=== PATIENT | male | born 1960 | race African-American/Black ===

== ENCOUNTER 2016-03-30 18:39 | Emergency (ER) | payer BC ==
[~2016-03-30] VITALS: Ht 175.3 cm; Wt 72.6 kg
[~2016-03-30 18:39] MED LIST: ACETAMINOPHEN-1 EAC1 ORAL
[2016-03-30 19:22] VITALS: BP 133/91
[2016-03-30 20:38] LABS: APPEARANCE,URINE CLEAR; KETONES,URINE NEGATIVE (NEGATIVE); LEUKOCYTE ESTERASE ,URINE NEGATIVE (NEGATIVE); NITRITE,URINE NEGATIVE (NEGATIVE); PH,URINE 6 (4.5-8.0); PROTEIN,URINE NEGATIVE (NEGATIVE); UROBILINOGEN,URINE 1 MG/DL (0.0-1.0)
[2016-03-30 20:56] LABS: WBC,URINE 0-2 /HPF (0 - 0)
[2016-03-30 21:20] LABS: ALANINE AMINOTRANSFERASE 10 U/L (3-41); ALBUMIN/GLOBULIN RATIO 0.6 (1.0-2.7); ANION GAP 9 (5-15); ASPARTATE AMINO TRANSFERASE 19 U/L (5-40); CALCIUM 8.6 mg/dL (8.6-10.2); CARBON DIOXIDE 29 mEQ/L (20-30); CHLORIDE 103 mEQ/L (98-107); GLOMERULAR FILTRATION RATE > 60 mL/min (>60); HEMOLYSIS 74; POTASSIUM 4.2 mEQ/L (3.4-4.9); SODIUM 141 mEQ/L (135-145); TOTAL PROTEIN 8.2 g/dL (6.6-8.7)
[2016-03-30] MEDS ORDERED: BENTYL10 MG ORAL (21:28)
[2016-03-30 21:31] LABS: LIPASE 17 U/L (< 60)
[2016-03-30 21:37] LABS: BASOPHILS % (AUTO) 1.8 % (0.0-2.0); EOSINOPHILS % (AUTO) 1.1 % (0.0-3.0); LYMPHOCYTES % (AUTO) 43.9 % (20.0-45.0); MEAN CORPUSCULAR HEMOGLOBIN 30.1 PG (27.0-31.0); MEAN CORPUSCULAR VOLUME 94 FL (80-99); MEAN PLATELET VOLUME 6.4 FL (6.5-10.1); MONOCYTES % (AUTO) 12.3 % (1.0-10.0); NEUTROPHILS % (AUTO) 40.9 % (45.0-75.0); PLATELET COUNT 343 K/UL (150-450); RED BLOOD COUNT 3.52 M/UL (4.70-6.10); RED CELL DISTRIBUTION WIDTH 13.9 % (11.6-14.8); WHITE BLOOD COUNT 4.2 K/UL (4.8-10.8)
[2016-03-30 21:48] VITALS: BP 133/91
--- NOTE | 2016-03-31 14:46 | Emergency Room Report ---
History of Present Illness General Chief Complaint: Abdominal Pain Source: Patient Present Illness HPI The patient is a 55-year-old male with a history of HIV presenting for abdominal pain and diarrhea which began one week prior. The patient states the pain is a 10 out of 10 dull ache to the lower abdomen. It is intermittent. No known provoking relieving factors. Patient states that the diarrhea is watery and brown. Pt has had 2 loose bowel movements today. The pt denies any other symptoms. The pt was seen elsewhere and prescribed Imodium which dose help. Pt denies N, V, CP, SOB, RAYO, dizziness, fever, chills Allergies: Uncoded Allergies: SULFA (Allergy, Unknown, 04/25/15) Patient History Past Medical History: see triage record Pertinent Family History: none Reviewed Nursing Documentation: PMH: Agreed, PSxH: Agreed Review of Systems All Other Systems: negative except mentioned in HPI Physical Exam Vital Signs Date Time Temp Pulse Resp B/P Pulse Ox O2 Delivery O2 Flow Rate FiO2 03/30/16 19:03 97.9 88 15 133/91 98 Room Air Sp02 EP Interpretation: reviewed, normal General Appearance: no apparent distress, alert, GCS 15, non-toxic Head: normocephalic, atraumatic Eyes: bilateral eye PERRL, bilateral eye normal inspection ENT: hearing grossly normal, normal pharynx, no angioedema, normal voice Respiratory: chest non-tender, lungs clear, normal breath sounds, speaking full sentences Cardiovascular #1: regular rate, rhythm, no edema Gastrointestinal: soft, no mass, non-distended, no guarding, abnormal bowel sounds - hyperactive, tenderness - suprapubic TTP Genitourinary: normal inspection, no CVA tenderness Musculoskeletal: back normal, gait/station normal, normal range of motion, non- tender Neurologic: alert, oriented x3, responsive, motor strength/tone normal, sensory intact, speech normal Psychiatric: judgement/insight normal, memory normal, mood/affect normal, no suicidal/homicidal ideation Skin: normal color, no rash, warm/dry, well hydrated Lymphatic: no adenopathy Medical Decision Making PA Attestation Dr. Neumann is my supervising physician. Patient management was discussed with my supervising physician Diagnostic Impression: Primary Impression: Gastroenteritis ER Course The patient is a 55-year-old male with a history of HIV presenting for abdominal pain and diarrhea which began one week prior Differential diagnoses considered include but not limited to gastroenteritis, pancreatitis, appendicitis, UTI PE: Vitals WNL. NAD. Abdomen: Normal appearance. Non distended. No ecchymosis. Normal BS. No McBurney point tenderness. No guarding. +TTP over suprapubic region No CVA tenderness Labs: CBC unremarkable. No leukocytosis CMP unremarkable. UA: No signs of infection The patient is given IV fluids and is feeling much better. The patient will be discharged home with a prescription for Bentyl. ER precautions are given. Patient will follow up with primary care doctor Laboratory Tests Test 03/30/16 19:25 03/30/16 20:20 03/30/16 21:24 Urine Color Yellow Urine Appearance Clear Urine pH 6 (4.5-8.0) Urine Specific Weed 1.020 (1.005-1.035) Urine Protein Negative (NEGATIVE) Urine Glucose (UA) Negative (NEGATIVE) Urine Ketones Negative (NEGATIVE) Urine Occult Blood 2+ (NEGATIVE) H Urine Nitrite Negative (NEGATIVE) Urine Bilirubin Negative (NEGATIVE) Urine Urobilinogen 1 MG/DL (0.0-1.0) H Urine Leukocyte Esterase Negative (NEGATIVE) Urine RBC 10-15 /HPF (0 - 0) H Urine WBC 0-2 /HPF (0 - 0) Urine Squamous Epithelial Cells None /LPF (NONE/OCC) Urine Bacteria None /HPF (NONE) Sodium Level 141 mEQ/L (135-145) Potassium Level 4.2 mEQ/L (3.4-4.9) Chloride Level 103 mEQ/L (98-107) Carbon Dioxide Level 29 mEQ/L (20-30) Anion Gap 9 (5-15) Blood Urea Nitrogen 17 mg/dL (7-23) Creatinine 1.0 mg/dL (0.7-1.2) Estimate Glomerular Filtration Rate > 60 mL/min (>60) Glucose Level 104 mg/dL (74-106) Calcium Level 8.6 mg/dL (8.6-10.2) Total Bilirubin 0.3 mg/dL (0.0-1.2) Aspartate Amino Transferase (AST) 19 U/L (5-40) Alanine Aminotransferase (ALT) 10 U/L (3-41) Alkaline Phosphatase 58 U/L (40-129) Total Protein 8.2 g/dL (6.6-8.7) Albumin 3.2 g/dL (3.5-5.2) L Globulin 5.0 g/dL Albumin/Globulin Ratio 0.6 (1.0-2.7) L Lipase 17 U/L (< 60) White Blood Count 4.2 K/UL (4.8-10.8) L Red Blood Count 3.52 M/UL (4.70-6.10) L Hemoglobin 10.6 G/DL (14.2-18.0) L Hematocrit 33.1 % (42.0-52.0) L Mean Corpuscular Volume 94 FL (80-99) Mean Corpuscular Hemoglobin 30.1 PG (27.0-31.0) Mean Corpuscular Hemoglobin Concent 32.0 G/DL (32.0-36.0) Red Cell Distribution Width 13.9 % (11.6-14.8) Platelet Count 343 K/UL (150-450) Mean Platelet Volume 6.4 FL (6.5-10.1) L Neutrophils (%) (Auto) 40.9 % (45.0-75.0) L Lymphocytes (%) (Auto) 43.9 % (20.0-45.0) Monocytes (%) (Auto) 12.3 % (1.0-10.0) H Eosinophils (%) (Auto) 1.1 % (0.0-3.0) Basophils (%) (Auto) 1.8 % (0.0-2.0) Lab Results Impression CBC unremarkable. No leukocytosis CMP unremarkable. UA: No signs of infection Last Vital Signs Date Time Temp Pulse Resp B/P Pulse Ox O2 Delivery O2 Flow Rate FiO2 03/30/16 21:48 97.9 88 15 133/91 98 Room Air Status: improved Disposition: HOME, SELF-CARE Condition: Improved Scripts Dicyclomine Hcl* (BENTYL*) 10 Mg Capsule 10 MG ORAL FOUR TIMES A DAY, #12 CAP Prov: MARINA AMEZCUA 03/30/16 Patient Instructions: Diarrhea, Adult Additional Instructions: I discussed my findings with the patient. All questions and concerns have been answered. Treatment and medication compliance have been addressed. I advised the patient that they need to follow up with PMD in 3-5 days. Return to ED if symptoms worsen, new symptoms arise, or if needed for any reason. Patient verbalized understanding of discharge instructions. MARINA AMEZCUA Mar 31, 2016 14:46
== END 2016-03-30 21:58 | disposition home or self-care (01) ==
LOC: EMR 19:30
DX: K52.9 Noninfective gastroenteritis and colitis, unspecified (principal); Z88.2 Allergy status to sulfonamides
CPT/HCPCS: 36415; 80053; 81003; 83690; 85025; 96360

== ENCOUNTER → 2016-04-06 | Outpatient (CLI) | payer BC ==
[~2016-04-06] MED LIST changes: +BENTYL10 MG ORAL
--- NOTE | 2016-04-06 13:32 | Diagnostic Imaging Report ---
Indication: PAIN Technique: One view of the chest Comparison: none Findings: There is a 1 cm nodular opacity projected over the left lower lung, possibly a nipple shadow as it is questionably visible on the lateral view as well. The lungs and pleural spaces are otherwise clear. Calcified granulomatous lymph nodes are seen in the left hilum. Heart size is normal. Previously demonstrated PICC is no longer present Impression: Left basilar opacity, possibly but not definitely nipple shadow. Recommend repeat chest radiograph with nipple markers Evidence of old granulomatous disease No acute process otherwise Finding discussed by phone with Dr. Kowalski
--- NOTE | 2016-04-06 14:41 | Diagnostic Imaging Report ---
Indication: Abdominal pain and diarrhea Technique: Youssef-scale and duplex images of the upper abdomen were obtained Comparison: None Findings: . Gallbladder is unremarkable, without stones, wall thickening, nor pericholecystic fluid. Sonographic Grider's sign is negative. Common bile duct measures 6 mm in diameter. No intrahepatic biliary ductal dilatation. Liver demonstrates normal echogenicity, no focal abnormality. Portal vein and hepatic veins are patent.. Pancreas is unremarkable. Spleen is unremarkable. Left kidney measures 10.5 cm in length. Right kidney measures 11.1 cm length. Both kidneys demonstrate normal echogenicity. There is no hydronephrosis. There are small renal cysts bilaterally. . Non-aneurysmal abdominal aorta. Impression: Negative for gallstones or dilated ducts or other acute or significant abnormality Incidental finding of small bilateral renal cysts
== END | disposition home or self-care (01) ==
LOC: ULS 12:35
DX: R63.4 Abnormal weight loss (principal); R91.1 Solitary pulmonary nodule; R10.9 Unspecified abdominal pain; R19.7 Diarrhea, unspecified
CPT/HCPCS: 71020; 76700

== ENCOUNTER 2017-06-08 13:09 | Outpatient (CLI) | payer BC ==
[2017-06-08 20:06] LABS: ALANINE AMINOTRANSFERASE 18 U/L (12-78); ALBUMIN 3.5 G/DL (3.4-5.0); ALBUMIN/GLOBULIN RATIO 0.6 (1.0-2.7); ALKALINE PHOSPHATASE 68 U/L (46-116); AMYLASE 73 U/L (25-115); ANION GAP 6 mmol/L (5-15); ASPARTATE AMINO TRANSFERASE 26 U/L (15-37); BILIRUBIN,TOTAL 0.4 MG/DL (0.2-1.0); BLOOD UREA NITROGEN 19 mg/dL (7-18); CALCIUM 8.9 MG/DL (8.5-10.1); CARBON DIOXIDE 28 MMOL/L (21-32); CHLORIDE 104 MMOL/L (98-107); CREATININE 1.2 MG/DL (0.55-1.30); SODIUM 138 MMOL/L (136-145)
== END 2017-06-08 15:09 | disposition home or self-care (01) ==
LOC: LAB 13:09
DX: R53.83 Other fatigue (principal)
CPT/HCPCS: 36415; 80053; 82150; 82627; 83690; 84153; 84403; 84443